=== PATIENT | male | born 1990 | race African-American/Black ===

== ENCOUNTER 2018-09-06 22:36 | Emergency (ER) | payer BC ==
[~2018-09-06] VITALS: Ht 177.8 cm; Wt 86.2 kg
[2018-09-06 22:46] VITALS: BP 154/79
[2018-09-06] MEDS ORDERED: NAPROSYN500 MG PO (23:07)
[2018-09-06] MEDS ORDERED: NORFLEX100 MG PO (23:07)
== END 2018-09-06 23:25 | disposition home or self-care (01) ==
LOC: ER 22:36
DX: S39.012A Strain of muscle, fascia and tendon of lower back, initial encounter (principal); F17.210 Nicotine dependence, cigarettes, uncomplicated; Z90.89 Acquired absence of other organs; X50.1XXA Overexertion from prolonged static or awkward postures, initial encounter; Y92.89 Other specified places as the place of occurrence of the external cause; Y99.0 Civilian activity done for income or pay; Y99.8 Other external cause status

== ENCOUNTER 2018-11-20 15:16 | Emergency (ER) | payer OTHER ==
[~2018-11-20] VITALS: Ht 175.3 cm; Wt 88.0 kg
[~2018-11-20 15:16] MED LIST: NAPROSYN500 MG PO; NORFLEX100 MG PO
[2018-11-20] MEDS ORDERED: MOBIC15 MG PO (16:29)
[2018-11-20] MEDS ORDERED: VALIUM5 MG PO (16:29)
[2018-11-20 16:37] VITALS: BP 140/83
== END 2018-11-20 16:46 | disposition home or self-care (01) ==
LOC: ER 15:16
DX: M25.561 Pain in right knee (principal); M79.671 Pain in right foot; Z90.89 Acquired absence of other organs; F17.210 Nicotine dependence, cigarettes, uncomplicated; V49.49XA Driver injured in collision with other motor vehicles in traffic accident, initial encounter; Y93.I9 Activity, other involving external motion; Y92.89 Other specified places as the place of occurrence of the external cause; Y99.8 Other external cause status